=== PATIENT | male | born 1945 | race Caucasian/White ===

== ENCOUNTER → 2018-09-17 20:14 | Emergency (ER) | payer MEDICARE, BC ==
--- OUTSIDE RECORDS SUMMARY | 2018-09-17 20:49 | XMS REPORT | Continuity of Care Document ---
:1945 External Reference #:[id number] Author Name Kranthi Gutierrez M.D. Address [address] [place] [address] Care Team Providers Name Role Phone Syed Falcon M.D. Primary Care Physician Unavailable Payers Date Identification Numbers Payment Provider Subscriber Effective: 2011 Policy Number: [id number] Medicare - NGS Dario Soria PayID: [id number] [address] [place] [address] Policy Number: [id number] [place] Plan Dario Smith Yang ISBELL PayID: [id number] [address] [place] [address] Problems Active Problems Provider Date H/O Malignant melanoma Onset: Sinusitis Onset: Seasonal allergy Onset: Diabetes mellitus Onset: Primary open angle glaucoma Kranthi Gutierrez M.D. Onset: 08/30/2014 Type 2 diabetes mellitus Kranthi Gutierrez M.D. Onset: 08/30/2014 Nuclear senile cataract Kranthi Gutierrez M.D. Onset: 08/30/2014 Moderate Glaucoma Kranthi Gutierrez M.D. Onset: 08/30/2014 Keratoconjunctivitis sicca, not specified as Kranthi Gutierrez M.D. Onset: Sjogren's Bilateral primary open angle glaucoma Kranthi Gutierrez M.D. 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 ETOH Use Denies alcohol use Recreational Drug Use Denies Drug Use Tobacco Use Start: Unknown End: Unknown Patient is a former smoker Smoking Status Reviewed: 09/15/18 Patient is a former smoker Allergies, Adverse Reactions, Alerts Active Allergies Reaction Severity Comments Date Seasonal 09/15/2018 Medications Active Medications SIG Qnty Indications Ordering Provider Date Multi Vitamin Daily Unknown Tablets Vitamin B-12 Unknown 50mcg Lozenges Metformin HCL Unknown 500mg Tablets Quinapril HCL Take 1 Tablet By Unknown 5mg Tablets Mouth Every Day Rosuvastatin Calcium Take 1 Tablet By Unknown 5mg Mouth Every Day Tablets History Medications Vitamin D3 Complete Unknown - 08/29/2014 Tablets Fish Oil Kranthi Gutierrez, - 306mg Capsules M.D. 01/08/2017 Timolol Maleate instill 1 drop Kranthi Gutierrez, - Ophthalmic Gel Forming into both eyes M.D. 03/21/2015 0.5% every day GFS Prednisolone Acetate Place 1 Drop Into Unknown - 1% Right Eye 3 Times 08/29/2014 Suspension A Day Cod Liver Oil every day Kranthi Gutierrez, - 1000mg M.D. 01/08/2017 Capsules Procedures Date Code Description Status 02/17/2018 66351 Scanning Computerized Ophthalmic Diagnostic Imag Posterior Completed Seg On 02/17/2018 08801 Visual Field Exam Extended Completed 02/17/2018 04922 Est Patient Comprehensive Exam Completed 07/10/2017 33132 Est Patient Intermediate Exam Completed 01/09/2017 97026 Scanning Computerized Ophthalmic Diagnostic Imag Posterior Completed Seg On 01/09/2017 00806 Visual Field Exam Extended Completed 01/09/2017 95962 Est Patient Comprehensive Exam Completed 06/24/2016 45106 Gonioscopy Completed 06/24/2016 08957 Determination Of Refractive State Completed 06/24/2016 32814 Est Patient Intermediate Exam Completed 12/25/2015 68317 Scanning Computerized Ophthalmic Diagnostic Imag Posterior Completed Seg On 12/25/2015 95108 Visual Field Exam Extended Completed 12/25/2015 48022 Est Patient Comprehensive Exam Completed 06/19/2015 20852 Est Patient Intermediate Exam Completed 03/21/2015 43274 Est Patient Comprehensive Exam Completed 03/21/2015 78005 Determination Of Refractive State Completed 03/21/2015 90862 Visual Field Exam Extended Completed 03/21/2015 07243 Scanning Computerized Ophthalmic Diagnostic Imag Posterior Completed Seg On 07/18/2014 40560 Trabeculoplasty By Laser Surgery Completed 07/04/2014 60879 Trabeculoplasty By Laser Surgery Completed 06/03/2014 21058 Scanning Computerized Ophthalmic Diagnostic Imag Posterior Completed Seg On 06/03/2014 48619 Gonioscopy Completed 06/03/2014 77880 Est Patient Intermediate Exam Completed 05/27/2014 32018 Visual Field Exam Extended Completed 05/10/2014 32180 Cancelled Appointment Completed 01/24/2014 75077 Fundus Photography With Interpretation And Report Completed 01/24/2014 84724 Est Patient Comprehensive Exam Completed 07/29/2013 79184 Est Patient Intermediate Exam Completed 07/29/2013 98565 Determination Of Refractive State Completed 07/29/2013 78112 Visual Field Exam Extended Completed 02/02/2013 10010 Est Patient Comprehensive Exam Completed 08/04/2012 66538 Scanning Computerized Ophthalmic Diagnostic Imag Posterior Completed Seg On 08/04/2012 36939 Visual Field Exam Extended Completed 08/04/2012 64404 Est Patient Intermediate Exam Completed 01/31/2012 81765 Determination Of Refractive State Completed 01/31/2012 21222 Est Patient Comprehensive Exam Completed 06/18/2011 83737 Scanning Computerized Ophthalmic Diagnostic Imag Posterior Completed Seg On 06/18/2011 21119 Visual Field Exam Extended Completed 06/18/2011 82802 Est Patient Intermediate Exam Completed 12/18/2010 75201 Fundus Photography With Interpretation And Report Completed 12/18/2010 92811 Est Patient Comprehensive Exam Completed 06/14/2010 44604 Est Patient Intermediate Exam Completed 06/14/2010 64641 Determination Of Refractive State Completed 06/14/2010 60390 Visual Field Exam Extended Completed 12/12/2009 98646 Scanning Laser W/Interp And Report Completed 12/12/2009 06142 Est Patient Intermediate Exam Completed 05/19/2009 75405 Visual Field Exam Extended Completed 05/19/2009 40956 Est Patient Comprehensive Exam Completed 11/17/2008 16747 Est Patient Intermediate Exam Completed 06/14/2008 51766 Scanning Laser W/Interp And Report Completed 06/14/2008 60113 Est Patient Intermediate Exam Completed 05/17/2008 18504 Visual Field Exam Extended Completed 05/17/2008 34278 Est Patient Intermediate Exam Completed 04/05/2008 79785 Fundus Photography With Interpretation And Report Completed 04/05/2008 98063 Determination Of Refractive State Completed 04/05/2008 55274 New Patient Comprehensive Exam Completed 04/05/2008 12170 Pachymetry Completed Encounters Type Date Location Provider Dx Diagnosis Office Visit 08/30/2014 Kranthi Jackson, 365.11 Primary Open Angle 7:45a jose HERNÁNDEZ M.D. Glaucoma 365.72 Moderate Glaucoma 250.00 Diabetes/ Type 2 W/O Complication 366.16 Senile Nuclear Sclerosis / Cataract Office Visit 07/20/2008 8:45a Kranthi Jackson 365.11 Primary Open jose HERNÁNDEZ M.D. Angle Glaucoma Plan of Treatment Future Appointment(s):03/18/2019 8:30 am - Kranthi Gutierrez M.D. at Kranthi Gutierrez MD, 09/15/2018 - Kranthi Gutierrez M.D.H40.1131 Primary open-angle glaucoma, bilateral, mild stageComments:Smoking can increase the risk of developing or worsening any eye related disease, as well as affect your overall health. If you are a smoker, we strongly recommend that you quit.If you are not a smoker, we strongly recommend that you do not start. Your glaucoma is stable at this time.Your eye pressure is within an acceptable range, and your testing does not show any further deterioration at this time. Please continue your treatment.Follow up:6 Month Follow Up Diagnostic Refraction DFE/IOP OCT ON Visual Field 30-2 You can expect to have your eyes dilated at your next visit. If Dr. Gutierrez orders any additional testing, it may require extra time. We recommend that you bring sunglasses, as dilation drops often make you light sensitive until they wear off. We always recommend you bring someone to drive you home if you are uncomfortable driving with your eyes dilated. If you have any questions before your next visit, feel free to call our office at [phone].E11.9 Type 2 diabetes mellitus without complicationsComments:You have diabetes. I do not detect any changes in both of your retinas from diabetes at this time. Proper control of your diabetes is important for the health of your eyes. Changes in your eyes from diabetes can happen without symptoms, so it is important that you have your eyes examined. Dr. Gutierrez has sent a report to your primary care doctor, letting them know there is no damage from the Diabetes in your eyes.H25.13 Age-related nuclear cataract, bilateralComments:You have been diagnosed with cataracts. If you are happy with your vision as it is now, then we willsee you at your next scheduled appointment. If you feel like your vision is getting worse before your scheduled appointment, please call Louise at [phone].
[2018-09-17 20:59] LABS: Hematocrit 44 % (42-52); Hemoglobin 14.6 g/dL (14.0-18.0); Mean Corpuscular HGB Conc 33 g/dL (31-36); Mean Corpuscular Hemoglobin 30 pg (27-31); Mean Corpuscular Volume 88 fL (80-94); Mean Platelet Volume 8.6 fL (7.4-10.4); Platelet Count 198 10^3/uL (150-450); Red Blood Count 4.94 10^6 /uL (4.18-5.48); Red Cell Distribution Width 15 % (10-15); White Blood Count 8.2 10^3/uL (3.5-10.8)
[2018-09-17 21:07] LABS: Activated Partial Thrombo Time 35.6 seconds (26.0-38.0); INR 1.02 (0.82-1.09)
[2018-09-17 21:19] LABS: Albumin 3.9 g/dL (3.2-5.2); Albumin/Globulin Ratio 1.3 (1-3); BUN/Creatinine Ratio 23.6 (8-20); Calcium 9.3 mg/dL (8.6-10.3); EGFR African American 129.8 (>60); EGFR Non-African American 107.3 (>60); Potassium 4.4 mmol/L (3.5-5.0); Total Bilirubin 0.4 mg/dL (0.2-1.0); Total Protein 6.9 g/dL (6.4-8.9)
--- NOTE | 2018-09-17 22:27 | ED ---
Lower Extremity - HPI Summary HPI Summary: This patient is a 73 year old M presenting to [facility] with a chief complaint of R lower extremity pain for 2 weeks. The pt reports that he has had a pain behind his R knee starting two weeks ago. The pain the moved to his R calf since and started to swell. The pain is rated a 6/10 in severity. The pain was increased with movement. He reports that aspirin and rest alleviate the pain. He has pain on palpation. Patient denies any fever, CP, N/V/D. Pt also stated that he did not want any pain medications since he plans on driving home. - History of Current Complaint Chief Complaint: EDExtremityLower Stated Complaint: LEG PAIN PER PT Time Seen by Provider: 09/17/18 22:21 Hx Obtained From: Patient Mechanism Of Injury: Unknown Onset of Pain: Immediate Onset/Duration: Still Present - 09/13/18 Severity Initially: Moderate Severity Currently: Moderate Pain Intensity: 6 Pain Scale Used: 0-10 Numeric Timing: Constant Location: Other - Started behind his R knee then migrated to his R calf Associated Signs And Symptoms: Positive: Swelling, Knee Pain, Other - NEGATIVE: CP, N/V/D. Negative: Fever Aggravating Factor(s): Weight Bearing Alleviating Factor(s): Rest, OTC Meds - Pt stated that he takes aspirin Able to Bear Weight: Yes - Allergies/Home Medications Allergies/Adverse Reactions: Allergies Allergy/AdvReac Type Severity Reaction Status Date / Time No Known Allergies Allergy Verified 05/09/17 11:17 PMH/Surg Hx/FS Hx/Imm Hx Previously Healthy: No Endocrine/Hematology History: Reports: Hx Diabetes Cardiovascular History: Reports: Hx Hypertension Respiratory History: Denies: Hx Asthma Infectious Disease History: No Infectious Disease History: Denies: Traveled Outside the [place] in Last 30 Days - Family History Known Family History: Positive: Cardiac Disease, Hypertension, Diabetes - Social History Alcohol Use: None Hx Substance Use: No Hx Tobacco Use: Yes Smoking Status (MU): Light Every Day Tobacco Smoker Review of Systems Negative: Fever Negative: Chest Pain Negative: Vomiting, Diarrhea, Nausea Positive: Other - R calf and knee pain Positive: Other - swelling about the R calf All Other Systems Reviewed And Are Negative: Yes Physical Exam - Summary Physical Exam Summary: VITAL SIGNS: Reviewed. GENERAL: Patient is a well-developed and nourished male who is lying comfortable in the stretcher. Patient is not in any acute respiratory distress. HEAD AND FACE: No signs of trauma. No ecchymosis, hematomas or skull depressions. No sinus tenderness. EYES: PERRLA, EOMI x 2, No injected conjunctiva, no nystagmus. EARS: Hearing grossly intact. Ear canals and tympanic membranes are within normal limits. MOUTH: Oropharynx within normal limits. NECK: Supple, trachea is midline, no adenopathy, no JVD, no carotid bruit, no c- spine tenderness, neck with full ROM CHEST: Symmetric, no tenderness at palpation LUNGS: Clear to auscultation bilaterally. No wheezing or crackles. CVS: Regular rate and rhythm, S1 and S2 present, no murmurs or gallops appreciated. ABDOMEN: Soft, non-tender. No signs of distention. No rebound no guarding, and no masses palpated. Bowel sounds are normal. EXTREMITIES: FROM in all major joints, no edema, no cyanosis or clubbing. Tenderness and swelling of the R leg. Calf tenderness. NEURO: Alert and oriented x 3. No acute neurological deficits. Speech is normal and follows commands. Neurovascular exam is intact. SKIN: Dry and warm Triage Information Reviewed: Yes Vital Signs On Initial Exam: Initial Vitals Temp Pulse Resp BP Pulse Ox 98.3 F 79 18 155/109 97 09/17/18 20:16 09/17/18 20:16 09/17/18 20:16 09/17/18 20:16 09/17/18 20:16 Vital Signs Reviewed: Yes Diagnostics - Vital Signs Vital Signs Temp Pulse Resp BP Pulse Ox 09/17/18 20:16 98.3 F 79 18 155/109 97 - Laboratory Lab Results: Lab Results 09/17/18 09/17/18 09/17/18 Range/Units 20:43 20:45 20:45 WBC 8.2 (3.5-10.8) 10^3/uL RBC 4.94 (4.18-5.48) 10^6 /uL Hgb 14.6 (14.0-18.0) g/dL Hct 44 (42-52) % MCV 88 (80-94) fL MCH 30 (27-31) pg MCHC 33 (31-36) g/dL RDW 15 (10-15) % Plt Count 198 (150-450) 10^3/uL MPV 8.6 (7.4-10.4) fL INR (Anticoag Therapy) 1.02 (0.82-1.09) APTT 35.6 (26.0-38.0) seconds Sodium 140 (135-145) mmol/L Potassium 4.4 (3.5-5.0) mmol/L Chloride 108 (101-111) mmol/L Carbon Dioxide 28 (22-32) mmol/L Anion Gap 4 (2-11) mmol/L BUN 17 (6-24) mg/dL Creatinine 0.72 (0.67-1.17) mg/dL Est GFR ( Amer) 129.8 (>60) Est GFR (Non-Af Amer) 107.3 (>60) BUN/Creatinine Ratio 23.6 H (8-20) Glucose 93 (70-100) mg/dL Calcium 9.3 (8.6-10.3) mg/dL Total Bilirubin 0.40 (0.2-1.0) mg/dL AST 19 (13-39) U/L ALT 27 (7-52) U/L Alkaline Phosphatase 54 (34-104) U/L Total Protein 6.9 (6.4-8.9) g/dL Albumin 3.9 (3.2-5.2) g/dL Globulin 3.0 (2-4) g/dL Albumin/Globulin Ratio 1.3 (1-3) Result Diagrams: 09/17/18 20:45 09/17/18 20:43 Lab Statement: Any lab studies that have been ordered have been reviewed, and results considered in the medical decision making process. - Ultrasound Venous Doppler Study Ultrasound Interpretation Completed By: Radiologist Summary of Ultrasound Findings: 1. No right lower extremity deep vein thrombosis. 2. Complex popliteal cyst. ED Physician has reviewed this report. Re-Evaluation - Re-Evaluation First Eval Re-Evaluation Time: 23:25 Change: Improved Comment: Pt was informed about his imaging results and the discharge plan. He is agreeable. Lower Extremity Course/Dx - Course Course Of Treatment: This patient is a 73 year old M presenting to [facility] with a chief complaint of R lower extremity pain for 2 weeks. The pt reports that he has had a pain behind his R knee starting two weeks ago. Upon PE he is found to have R calf tenderness and swelling to his R leg. His neurovascular exam is intact. The pt received a venous doppler study which found: 1. No right lower extremity deep vein thrombosis. 2. Complex popliteal cyst. Pt will be discharged home with a Dx of R popliteal cyst and instructed to follow up with an orthopedic ZOILA and to return to the ED with any new or worsening symptoms. He will be prescribed Tramadol 50 mg PO. - Diagnoses Provider Diagnoses: Unruptured cyst of right popliteal space Discharge - Sign-Out/Discharge Documenting (check all that apply): Patient Departure - discharge Patient Received Moderate/Deep Sedation with Procedure: No - Discharge Plan Condition: Stable Disposition: HOME Prescriptions: traMADol TAB* [Ultram*] 50 mg PO Q6HR PRN #14 tab MDD 4 PRN Reason: Pain Patient Education Materials: [facility] (ED) Referrals: Syed Falcon MD [Primary Care Provider] - Additional Instructions: Please follow up with an orthopedic ZOILA and return to the emergency department for any new or worsening symptoms. - Attestation Statements Document Initiated by Scribe: Yes Documenting Scribe: Nathan Rock Provider For Whom Porter is Documenting (Include Credential): Yane Velazquez MD Scribe Attestation: Nathan Pires, scribed for Yane Velazquez MD on 09/17/18 at 1028. Status of Scribe Document: Ready
[2018-09-17 23:49] VITALS: BP 139/115
== END | disposition home or self-care (01) ==
LOC: ED 20:14
DX: M71.21 Synovial cyst of popliteal space [Baker], right knee (principal); E11.9 Type 2 diabetes mellitus without complications; F17.200 Nicotine dependence, unspecified, uncomplicated
CPT/HCPCS: 36415; 80053; 85027; 85610; 85730; 99282